=== PATIENT | male | born 1980 | race Caucasian/White ===

== ENCOUNTER 2018-10-18 07:36 | Day surgery (SDC) | payer OTHER ==
[2018-10-05 10:27] VITALS: BMI 48.7
[2018-10-18] MEDS ORDERED: MIDAZOLAM HCL 2 MG/2 ML SINGLE DOSE VIAL ONE ×2 (08:48→09:35)
[2018-10-18 10:22] VITALS: TEMP 97.8
[2018-10-18 11:01] VITALS: BP 122/80; PULSE 86
[2018-10-18] MEDS ORDERED: oxyCODONE HCL 5 MG TABLET PO PRN ×2 (11:40)
[2018-10-18] MEDS ORDERED: ONDANSETRON 4 MG/2 ML VIAL IVPUSH PRN (11:40)
[2018-10-18] MEDS ORDERED: LACTATED RINGERS SOLUTION 1,000 ML IV SCH (11:45)
--- NOTE | 2018-10-19 15:58 | OP ---
DATE OF OPERATION: 10/18/2018 PREOPERATIVE DIAGNOSIS: Left carpal tunnel syndrome. POSTOPERATIVE DIAGNOSIS: Left carpal tunnel syndrome. OPERATIVE PROCEDURE: Left carpal tunnel release. ANESTHESIA: Local with sedation. COMPLICATIONS: None. ESTIMATED BLOOD LOSS: Minimal. INDICATION FOR PROCEDURE: The patient is a 38-year-old male with the above findings, indicated for operative treatment. Risks, benefits, alternatives were discussed with patient at length. Proper informed consent was obtained. PROCEDURE: After proper identification of patient and correct operative site, patient brought to operating room, placed supine on the able. All prominences were well padded. Sedation and local anesthesia were given. The left upper extremity was prepped and draped in usual sterile fashion. A well-padded tourniquet was placed over the sterile prep. Esmarch bandage to exsanguinate left upper extremity, tourniquet inflated to 250 mmHg. A longitudinal incision was made over the proximal aspect of the palm. Incision was taken sharply through the skin with blunt and sharp dissection through subcutaneous tissues. Palmar fascia was divided longitudinally. Transverse carpal ligament was divided longitudinally along with the distal 4 cm of antebrachial fascia under direct visualization with loupe magnification. This provided complete release of the median nerve at the wrist. The wound was irrigated with saline and repaired with 5-0 plain gut sutures. Sterile dressings were applied. Patient was brought to the recovery room in stable condition. He tolerated procedure well. HUSSEIN GUTIÉRREZ M.D. [id number]
== END 2018-10-18 10:50 | disposition home or self-care (01) ==
LOC: FASU 07:36
PROVIDERS: ATTEND Orthopaedic Surgery Hand Surgery
PROC: 01N50ZZ Release Median Nerve, Open Approach (ICD-10-PCS; principal; 2018-10-18 09:48)
DX: G56.02 Carpal tunnel syndrome, left upper limb (principal)

== ENCOUNTER 2018-11-15 06:19 | Day surgery (SDC) | payer OTHER ==
[2018-11-09 13:04] VITALS: BMI 48.7
[2018-11-15] MEDS ORDERED: LIDOCAINE HCL 2% (20ML MULTI-DOSE VIAL) NR ONE (07:14)
[2018-11-15] MEDS ORDERED: BUPIVACAINE HCL 0.25% 125 MG/50 ML VIAL ONE (07:14)
[2018-11-15] MEDS ORDERED: MIDAZOLAM HCL 2 MG/2 ML SINGLE DOSE VIAL ONE ×2 (07:33→08:02)
[2018-11-15] MEDS ORDERED: LIDOCAINE HCL/PF 2% SDV 5ML VIAL ONE (07:34)
[2018-11-15] MEDS ORDERED: PROPOFOL 20 ML ONE ×2 (07:34)
[2018-11-15] MEDS ORDERED: SUCCINYLCHOLINE CHLORIDE 200 MG/10 ML VIAL ONE (07:41)
[2018-11-15] MEDS ORDERED: ONDANSETRON 4 MG/2 ML VIAL ONE (07:42)
[2018-11-15] MEDS ORDERED: LIDOCAINE HCL 2% (50ML VIAL) INF ONE (08:15)
[2018-11-15] MEDS ORDERED: ACETAMINOPHEN 325 MG TABLET (FP) PO PRN (08:21)
[2018-11-15] MEDS ORDERED: oxyCODONE HCL 5 MG TABLET PO PRN ×2 (08:21)
[2018-11-15] MEDS ORDERED: ONDANSETRON 4 MG/2 ML VIAL IVPUSH PRN (08:21)
[2018-11-15] MEDS ORDERED: LACTATED RINGERS SOLUTION 1,000 ML IV SCH (08:30)
[2018-11-15] MEDS ORDERED: oxyCODONE HCL 5 MG TABLET ONE (08:59)
[2018-11-15 09:23] VITALS: PULSE 85
[2018-11-15 09:37] VITALS: BP 138/86; TEMP 97.7
--- NOTE | 2018-11-16 10:22 | OP ---
DATE OF OPERATION: 11/15/2018 PREOPERATIVE DIAGNOSIS: Right carpal tunnel syndrome. POSTOPERATIVE DIAGNOSIS: Right carpal tunnel syndrome. OPERATIVE PROCEDURE: Right carpal tunnel release. ANESTHESIA: Local with sedation. COMPLICATIONS: None. ESTIMATED BLOOD LOSS: Minimal. INDICATIONS FOR PROCEDURE: The patient is a 38-year-old male with the above finding, indicated for operative treatment. Risks, benefits, alternatives were discussed with the patient at length. Preoperative informed consent was obtained. DESCRIPTION OF PROCEDURE: After preoperative identification of the patient, correct operative site, patient was brought to the operating room, placed supine on the operating table with all prominences well padded. Sedation was given by the anesthesiologist. Local anesthesia was given. Right upper extremity was prepped and draped in sterile fashion. Esmarch bandage used the exsanguinate the right upper extremity. Tourniquet was inflated to 250 mmHg. Longitudinal incision was made in the proximal aspect of the palm. The incision was taken sharply through skin with blunt and sharp dissection through the subcutaneous tissues. Palmar fascia was divided longitudinally. Transverse carpal ligament was divided longitudinally, along with the distal 4 cm of antecubital fascia under direct visualization with loupe magnification. This provided complete release of the median nerve at the wrist. Wound was irrigated and repaired with a 5-0 plain gut suture. Patient was brought to the recovery room in stable condition. He tolerated the procedure well. HUSSEIN GUTIÉRREZ M.D. [id number]
== END 2018-11-15 09:30 | disposition home or self-care (01) ==
LOC: FASU 06:19
PROVIDERS: ATTEND Orthopaedic Surgery Hand Surgery
PROC: 01N50ZZ Release Median Nerve, Open Approach (ICD-10-PCS; principal; 2018-11-15 08:00)
DX: G56.01 Carpal tunnel syndrome, right upper limb (principal)